=== PATIENT | female | born 1960 | race Caucasian/White ===

== ENCOUNTER → 2017-03-27 | Outpatient (CLI) | payer OTHER ==
--- NOTE | ~2017-03-27 | US98 ---
[facility] A Service of [facility] RADIOLOGY TEXT RESULTS PATIENT: JOYA WILSON LOCATION: [facility] : 62 UNIT #: [id number] AGE: [address]: DYLAN Luis APRN SEX: F ORDER DR: [id number] [facility] [address] [place], [place] [address] [id number] O MR#: [id number] Acc #: [id number] NAME: OJYA WILSON : 1960 SEX: F STUDY DATE/TIME: 03/27/2017 11:14 UNIT: [facility] ROOM: STUDY DESCRIPTION: US Pelvic Non-OB Complete Attending Physician: Dylan Wilkins Aprn Referring Physician: Dylan Wilkins Aprn Ordering Physician: Dylan Wilkins Aprn Primary Care Physician: Dylan Wilkins Aprn MEDICAL IMAGING REPORT This report is preliminary unless electronic signature is present EXAM Transabdominal and transvaginal pelvic ultrasound, 03/27/2017 HISTORY Right lower quadrant abdominal and pelvic pain for 3 weeks radiating upward. FINDINGS Transabdominal and transvaginal pelvic ultrasound was performed. Endovaginal ultrasound was performed for attempted better visualization of the adnexal structures. The bladder was empty for the examination. The uterus measures 4.5 cm craniocaudal by 2.9 cm AP by 4.1 cm transverse. The endometrial stripe measures 3 mm. Trace fluid was seen in the endometrial canal. The left ovary measured 2 cm x 8 mm x 1 cm, while the right ovary measured 1.4 cm x 1.4 cm x 1.1 cm. Color flow Doppler images show normal blood flow to both ovaries. There is no adnexal mass and there is no free fluid in the pelvis. IMPRESSION Negative transabdominal and transvaginal pelvic ultrasound. Incidental note is made of trace fluid within the endometrial canal. Dictated by... Casey Mayen M.D. THIS IS AN ELECTRONICALLY VERIFIED REPORT Casey Mayen M.D. at 03/30/2017 6:07 AM KRT/psc TD: 03/27/2017 19:59 JOB #: [id number] [facility] A Service of [facility] RADIOLOGY TEXT RESULTS PATIENT: [id number] 62 UNIT #: [id number] AGE: [address]: DYLAN Luis, RECREATIONAL THERAPY TECHNICIAN SEX: F ORDER DR: MEDICAL IMAGING REPORT Page 1 of 1 COPY
--- NOTE | ~2017-03-27 | US5 ---
[facility] A Service of [facility] RADIOLOGY TEXT RESULTS PATIENT: JYOA WILSON LOCATION: [facility] : 62 UNIT #: [id number] AGE: [address]: DYLAN Luis APRN SEX: F ORDER DR: [id number] [facility] [address] [place], [place] [address] [id number] O MR#: [id number] Acc #: [id number] NAME: JOYA WILSON : 1960 SEX: F STUDY DATE/TIME: 03/27/2017 10:53 UNIT: [facility] ROOM: STUDY DESCRIPTION: US Abdominal Complete Attending Physician: Dylan Wilkins Aprn Referring Physician: Dylan Wilkins Aprn Ordering Physician: Dylan Wilkins Aprn Primary Care Physician: Dylan Wilkins Aprn MEDICAL IMAGING REPORT This report is preliminary unless electronic signature is present EXAM Abdominal ultrasound complete, 03/27/2017. HISTORY Generalized abdominal pain for 3 weeks. Pain in right lower quadrant radiates upward. No known injury. FINDINGS The liver is homogeneous in echotexture and demonstrates no cystic or solid mass lesions. The intra and extrahepatic bile ducts are not dilated. The gallbladder is normal with no evidence of cholelithiasis, wall thickening or pericholecystic fluid. The common duct measures 2 mm. The pancreas and spleen are normal. The spleen measures 8.9 cm in greatest diameter. The visualized portions of the abdominal aorta and inferior vena cava are within normal limits. The kidneys are normal bilaterally. IMPRESSION Negative abdominal ultrasound. Dictated by... Casey Mayen M.D. THIS IS AN ELECTRONICALLY VERIFIED REPORT Casey Mayen M.D. at 03/30/2017 6:07 AM NAKUL/tawny TD: 03/27/2017 19:08 JOB #: [id number] MEDICAL IMAGING REPORT [facility] A Service [facility] RADIOLOGY TEXT RESULTS PATIENT: JOYA WILSON LOCATION: [facility] #: [id number] : 62 UNIT #: [id number] AGE: [address]: DYLAN Luis, LICENSE ISSUER SEX: F ORDER DR: Page 1 of 1 COPY
== END | disposition home or self-care (01) ==
LOC: CWCC 10:37
DX: R10.33 Periumbilical pain (principal); R10.31 Right lower quadrant pain; R10.2 Pelvic and perineal pain
CPT/HCPCS: 76700; 76830; 76856